=== PATIENT | male | born 1945 | race Caucasian/White ===

== ENCOUNTER → 2016-11-01 | Outpatient (CLI) | payer MEDICARE, BC ==
[~2016-11-01] MED LIST: ANDROGEL1.62% TP; ASPIRIN E.C. 8181 MG PO; BENICAR 20MG TA20 MG PO; CENTRUM SILVER1 TA1 PO; CHROMIUM PICO200 MCG PO; CHROMIUM PICO500 MC1 PO; DESYREL 100MG100 MG PO; EXFORGE 5 MG-321 TAB PO; EXFORGE 5/320; FISH OIL CONC1000 MG PO; LIPITOR20 MG PO; MELATONIN PO; NASONEX SPRAY NS; NORVASC2.5 MG PO; PAXIL 20MG20 MG PO; SINGULAIR10 MG PO; VITAMIN C500 MG PO; VITAMIN D31000 IU PO; WELLBUTRIN SR150 M1 PO; XALATAN EYE DROPS OU; ZYRTEC 10MG PO
== END ==
LOC: BHSO 13:14
DX: F41.1 Generalized anxiety disorder (principal)

== ENCOUNTER → 2017-01-12 | Outpatient (CLI) | payer MEDICARE, BC | LOC: BHSO 14:59 | DX: F41.1 Generalized anxiety disorder (principal) ==

== ENCOUNTER → 2017-02-08 | Outpatient (CLI) | payer MEDICARE, BC | LOC: MHCPAIN 11:20 | DX: G89.29 Other chronic pain (principal); M54.16 Radiculopathy, lumbar region; M53.3 Sacrococcygeal disorders, not elsewhere classified | CPT/HCPCS: G0463 ==

== ENCOUNTER → 2017-03-27 | Outpatient (CLI) | payer MEDICARE, BC | LOC: COL.RAD 12:19 | DX: M25.561 Pain in right knee (principal) ==

== ENCOUNTER → 2017-04-10 | Outpatient (CLI) | payer MEDICARE, BC | LOC: MHCPAIN 12:37 | DX: G89.29 Other chronic pain (principal); M47.817 Spondylosis without myelopathy or radiculopathy, lumbosacral region; M53.3 Sacrococcygeal disorders, not elsewhere classified | CPT/HCPCS: G0463 ==

== ENCOUNTER → 2017-07-12 | Outpatient (CLI) | payer MEDICARE, BC | LOC: BHSO 14:46 | DX: F41.1 Generalized anxiety disorder (principal) ==

== ENCOUNTER → 2017-09-08 | Outpatient (CLI) | payer MEDICARE, BC | LOC: MHCPAIN 10:31 | DX: G89.29 Other chronic pain (principal); M47.27 Other spondylosis with radiculopathy, lumbosacral region; M48.061 Spinal stenosis, lumbar region without neurogenic claudication | CPT/HCPCS: G0463 ==

== ENCOUNTER → 2017-10-12 | Outpatient (CLI) | payer MEDICARE, BC | LOC: MHCPAIN 10:31 | DX: G89.29 Other chronic pain (principal); M47.27 Other spondylosis with radiculopathy, lumbosacral region; M48.061 Spinal stenosis, lumbar region without neurogenic claudication; M99.53 Intervertebral disc stenosis of neural canal of lumbar region | CPT/HCPCS: G0463; J1100; J2250; J3010; Q9967 ==

== ENCOUNTER → 2017-10-17 | Outpatient (CLI) | payer MEDICARE, BC | LOC: BHSO 12:40 | DX: F41.1 Generalized anxiety disorder (principal) | CPT/HCPCS: G0463 ==

== ENCOUNTER → 2017-10-24 | Outpatient (CLI) | payer MEDICARE, BC | LOC: MHCPAIN 11:10 | DX: G89.29 Other chronic pain (principal); M47.27 Other spondylosis with radiculopathy, lumbosacral region; M53.3 Sacrococcygeal disorders, not elsewhere classified; M48.061 Spinal stenosis, lumbar region without neurogenic claudication | CPT/HCPCS: G0463 ==

== ENCOUNTER 2017-10-30 08:07 | Emergency (ER) | payer MEDICARE, BC ==
[~2017-10-30] VITALS: Ht 182.9 cm; Wt 100.0 kg
[2017-10-30 08:13] VITALS: TEMP 99
[2017-10-30 09:13] LABS: HEMATOCRIT 47.3 % (42.0-52.0); HEMOGLOBIN 16.9 g/dl (13.5-18.0); MEAN CELL VOLUME 89 fl (80.0-100.0); MEAN CORPUSCULAR HEMOGLOBIN 32 pg (27.0-31.0); MEAN CORPUSCULAR HGB CONC 36 g/dl (33.0-37.0); MEAN PLATELET VOLUME 10.5 fl (7.4-10.4); PLATELET COUNT 185 K/mm3 (130-400); RED BLOOD COUNT 5.32 M/mm3 (4.20-5.60); REDCELL DISTRIBUTION WIDTH-CV 13.1 % (11.5-14.5)
[2017-10-30 09:14] LABS: COLLECTION METHOD CLEAN CATCH
[2017-10-30 09:22] LABS: ALBUMIN 4.7 gm/dL (3.5-5.0); BILIRUBIN,TOTAL 0.8 mg/dL (0.0-1.0); C-REACTIVE PROTEIN 1.1 mg/dL (0.0-0.9); CALCIUM 9.4 mg/dL (8.4-10.2); CREATININE, serum 0.98 mg/dL (0.66-1.25); POTASSIUM 3.6 mmol/L (3.4-5.0); TOTAL PROTEIN 7.5 gm/dL (6.4-8.2)
[2017-10-30 09:52] LABS: MUCOUS Present /lpf; PH 6 (5-8); SQUAMOUS EPITHELIAL 0-2 /hpf; URINE APPEARANCE Clear; URINE BACTERIA None Seen /hpf; URINE BILIRUBIN Negative (NEGATIVE); URINE BLOOD Negative (NEGATIVE); URINE COLOR Amber; URINE GLUCOSE Negative (NEGATIVE); URINE KETONE Negative (NEGATIVE); URINE LEUKOCYTE ESTERASE Negative (NEGATIVE); URINE NITRATE Negative (NEGATIVE); URINE PROTEIN(semi-quant) 1+ (NEGATIVE)
[2017-10-30 10:04] LABS: BAND 36 % (0-10); LYMPHOCYTE 4 % (20.0-51.0); NEUTROPHILS 60 % (42.0-75.2); PLATELET ESTIMATE NORMAL (NORMAL)
[2017-10-30] MEDS ORDERED: NAMZARIC1 ECC PO ×2 (11:25→14:15)
[2017-10-30 11:33] VITALS: BP 116/80; PULSE 77
[2017-10-30] MEDS ORDERED: NORVASC 5MG5 MG/TAB PO (14:13)
[2017-10-30] MEDS ORDERED: ANDROGEL1.62% TOP (14:14)
[2017-10-30] MEDS ORDERED: PROSCAR 5MG5 MG PO (14:14)
[2017-10-30] MEDS ORDERED: LIPITOR 10MG10 MG PO (14:15)
[2017-10-30] MEDS ORDERED: PROTONIX 40MG T40 MG PO (14:17)
[2017-10-30] MEDS ORDERED: HCTZ12.5TAB PO (14:18)
[2017-10-30] MEDS ORDERED: LEXAPRO20 MG PO (14:18)
[2017-10-30] MEDS ORDERED: LAMICTAL 25MG T25 MG PO (14:19)
[2017-10-30] MEDS ORDERED: DIOVAN320 MG PO (14:19)
[2017-10-30] MEDS ORDERED: VITAMIN D 1001000 IU PO (14:20)
[2017-10-30] MEDS ORDERED: VITAMINC1000TA PO (14:21)
[2017-10-30] MEDS ORDERED: MULTIPLE VITAMI1 TA5 PO (14:22)
[2017-10-30] MEDS ORDERED: ALEVE 220MG220 MG PO (14:22)
[2017-10-30] MEDS ORDERED: FISH OIL 1000MG1 CAP PO (14:22)
[2017-10-30] MEDS ORDERED: NATURAL POTASS595 MG PO (14:23)
[2017-10-30] MEDS ORDERED: CHROMIUM PICO200 MC2 PO (14:24)
[2017-10-30] MEDS ORDERED: DESYREL 100MG100 MG PO (14:25)
[2017-10-30] MEDS ORDERED: B-12 100 MCG PO (14:27)
[2017-10-30] MEDS ORDERED: XALATAN EYE DROPS OU (14:29)
== END 2017-10-30 11:35 | disposition home or self-care (01) ==
LOC: COL.ER 08:07
PROVIDERS: Family Medicine
DX: K52.9 Noninfective gastroenteritis and colitis, unspecified (principal); Z79.82 Long term (current) use of aspirin; Z79.52 Long term (current) use of systemic steroids
CPT/HCPCS: C9113; J2405; J7030

== ENCOUNTER 2017-10-30 13:41 | Day surgery (SDC) | payer MEDICARE, BC ==
[~2017-10-30] VITALS: Ht 182.9 cm; Wt 100.0 kg
[~2017-10-30 13:41] MED LIST changes: +NAMZARIC1 ECC PO
[2017-10-30] MEDS ORDERED: NORVASC 5MG5 MG/TAB PO (14:13)
[2017-10-30] MEDS ORDERED: ANDROGEL1.62% TOP (14:14)
[2017-10-30] MEDS ORDERED: PROSCAR 5MG5 MG PO (14:14)
[2017-10-30] MEDS ORDERED: LIPITOR 10MG10 MG PO (14:15)
[2017-10-30] MEDS ORDERED: NAMZARIC1 ECC PO (14:15)
[2017-10-30] MEDS ORDERED: PROTONIX 40MG T40 MG PO (14:17)
[2017-10-30] MEDS ORDERED: LEXAPRO20 MG PO (14:18)
[2017-10-30] MEDS ORDERED: HCTZ12.5TAB PO (14:18)
[2017-10-30] MEDS ORDERED: LAMICTAL 25MG T25 MG PO (14:19)
[2017-10-30] MEDS ORDERED: DIOVAN320 MG PO (14:19)
[2017-10-30] MEDS ORDERED: VITAMIN D 1001000 IU PO (14:20)
[2017-10-30] MEDS ORDERED: VITAMINC1000TA PO (14:21)
[2017-10-30] MEDS ORDERED: ALEVE 220MG220 MG PO (14:22)
[2017-10-30] MEDS ORDERED: MULTIPLE VITAMI1 TA5 PO (14:22)
[2017-10-30] MEDS ORDERED: FISH OIL 1000MG1 CAP PO (14:22)
[2017-10-30] MEDS ORDERED: NATURAL POTASS595 MG PO (14:23)
[2017-10-30] MEDS ORDERED: CHROMIUM PICO200 MC2 PO (14:24)
[2017-10-30] MEDS ORDERED: DESYREL 100MG100 MG PO (14:25)
[2017-10-30] MEDS ORDERED: B-12 100 MCG PO (14:27)
[2017-10-30] MEDS ORDERED: XALATAN EYE DROPS OU (14:29)
[2017-10-30 14:39] VITALS: BP 118/89; PULSE 101; TEMP 98.6
[2017-10-30 15:45] VITALS: BP 104/62; PULSE 98; TEMP 99.7
[2017-10-30 16:00] VITALS: BP 102/53; PULSE 92
[2017-10-30 16:15] VITALS: BP 113/61; PULSE 90
[2017-10-30 16:28] VITALS: PULSE 98
[2017-10-30 16:40] VITALS: BP 154/94
== END 2017-10-30 16:41 | disposition home or self-care (01) ==
LOC: SDCO 13:41
DX: K22.6 Gastro-esophageal laceration-hemorrhage syndrome (principal); R11.2 Nausea with vomiting, unspecified; R19.7 Diarrhea, unspecified; K29.80 Duodenitis without bleeding; R00.0 Tachycardia, unspecified; I10 Essential (primary) hypertension; I45.10 Unspecified right bundle-branch block; E78.00 Pure hypercholesterolemia, unspecified; E86.0 Dehydration
CPT/HCPCS: OP; J2250; J2405; J3010; J7030

== ENCOUNTER → 2018-03-02 | Outpatient (CLI) | payer MEDICARE, BC ==
[~2018-03-02] MED LIST changes: +ALEVE 220MG220 MG PO; +ANDROGEL1.62% TOP; +B-12 100 MCG PO; +CHROMIUM PICO200 MC2 PO; +DIOVAN320 MG PO; +FISH OIL 1000MG1 CAP PO; +HCTZ12.5TAB PO; +LAMICTAL 25MG T25 MG PO; +LEXAPRO20 MG PO; +LIPITOR 10MG10 MG PO; +MULTIPLE VITAMI1 TA5 PO; +NATURAL POTASS595 MG PO; +NORVASC 5MG5 MG/TAB PO; +PROSCAR 5MG5 MG PO; +PROTONIX 40MG T40 MG PO; +VITAMIN D 1001000 IU PO; +VITAMINC1000TA PO
== END ==
LOC: BHSO 09:57
DX: F33.41 Major depressive disorder, recurrent, in partial remission (principal)
CPT/HCPCS: G0463

== ENCOUNTER → 2018-06-06 | Outpatient (CLI) | payer MEDICARE, BC | LOC: BHSO 12:56 | DX: F41.1 Generalized anxiety disorder (principal) | CPT/HCPCS: G0463 ==

== ENCOUNTER → 2018-06-07 | Outpatient (CLI) | payer MEDICARE, BC | LOC: COL.VAS 09:35 | DX: I34.0 Nonrheumatic mitral (valve) insufficiency (principal); I51.7 Cardiomegaly ==

== ENCOUNTER → 2018-06-26 | Outpatient (CLI) | payer MEDICARE, BC | LOC: COL.PUL 12:42 | DX: R06.02 Shortness of breath (principal) | CPT/HCPCS: J7674 ==

== ENCOUNTER → 2018-10-17 | Outpatient (CLI) | payer MEDICARE, BC | LOC: MHCPAIN 14:07 | DX: G89.29 Other chronic pain (principal); M47.817 Spondylosis without myelopathy or radiculopathy, lumbosacral region; M54.16 Radiculopathy, lumbar region; M53.3 Sacrococcygeal disorders, not elsewhere classified | CPT/HCPCS: G0463 ==

== ENCOUNTER → 2018-10-18 | Outpatient (CLI) | payer MEDICARE, BC | LOC: MHCPAIN 13:04 | DX: M47.817 Spondylosis without myelopathy or radiculopathy, lumbosacral region (principal); M54.16 Radiculopathy, lumbar region ==

== ENCOUNTER → 2018-10-30 | Outpatient (CLI) | payer MEDICARE, BC | LOC: MHCPAIN 12:17 | DX: G89.29 Other chronic pain (principal); M47.817 Spondylosis without myelopathy or radiculopathy, lumbosacral region; M54.16 Radiculopathy, lumbar region; M53.3 Sacrococcygeal disorders, not elsewhere classified; M48.061 Spinal stenosis, lumbar region without neurogenic claudication | CPT/HCPCS: G0463 ==

== ENCOUNTER → 2018-11-01 | Outpatient (CLI) | payer MEDICARE, BC | LOC: MHCPAIN 12:53 | DX: M47.817 Spondylosis without myelopathy or radiculopathy, lumbosacral region (principal); M54.16 Radiculopathy, lumbar region ==

== ENCOUNTER → 2018-11-12 | Outpatient (CLI) | payer MEDICARE, BC | LOC: MHCPAIN 10:05 | DX: G89.29 Other chronic pain (principal); M47.817 Spondylosis without myelopathy or radiculopathy, lumbosacral region; M54.16 Radiculopathy, lumbar region; M53.3 Sacrococcygeal disorders, not elsewhere classified; M48.061 Spinal stenosis, lumbar region without neurogenic claudication | CPT/HCPCS: G0463 ==

== ENCOUNTER → 2018-12-05 | Outpatient (CLI) | payer MEDICARE, BC | LOC: BHSO 12:49 | DX: F33.41 Major depressive disorder, recurrent, in partial remission (principal) | CPT/HCPCS: G0463 ==

== ENCOUNTER → 2019-02-01 | Outpatient (CLI) | payer MEDICARE, BC | LOC: BHSO 13:15 | DX: F33.42 Major depressive disorder, recurrent, in full remission (principal) | CPT/HCPCS: G0463 ==

== ENCOUNTER 2019-05-12 11:21 | Emergency (ER) | payer MEDICARE, BC ==
[~2019-05-12] VITALS: Ht 182.9 cm; Wt 95.5 kg
[2019-05-12 11:30] VITALS: TEMP 99
[2019-05-12 12:16] LABS: BASO # 0.1 (0.0-0.2); BASO % 0.3 % (0.0-2.0); GRAN % 83.9 % (42.2-75.2); HEMATOCRIT 48.5 % (42.0-52.0); HEMOGLOBIN 16.4 g/dl (13.5-18.0); LYMPH # 0.8 (1.2-3.4); LYMPH % 5.9 % (20.0-51.0); MEAN CELL VOLUME 89 fl (80.0-100.0); MEAN CORPUSCULAR HEMOGLOBIN 30 pg (27.0-31.0); MEAN CORPUSCULAR HGB CONC 34 g/dl (33.0-37.0); MEAN PLATELET VOLUME 10.4 fl (7.4-10.4); MONO # 1.3 (0.1-0.6); MONO % 9.1 % (1.7-9.3); PLATELET COUNT 251 K/mm3 (130-400); RED BLOOD COUNT 5.44 M/mm3 (4.20-5.60); REDCELL DISTRIBUTION WIDTH-CV 13.4 % (11.5-14.5)
[2019-05-12 12:22] LABS: INR 1.4 (0.8-3.0); PROTHROMBIN TIME 16.4 SECONDS (9.7-12.8)
[2019-05-12] MEDS ORDERED: BUSPAR5 MG PO (12:25)
[2019-05-12] MEDS ORDERED: FLEXERIL 1010 MG/TAB PO (12:25)
[2019-05-12] MEDS ORDERED: NEXIUM 40MG40 MG PO (12:26)
[2019-05-12 12:37] LABS: ALBUMIN 4.2 gm/dL (3.5-5.0); BILIRUBIN,TOTAL 0.9 mg/dL (0.0-1.0); CALCIUM 9.6 mg/dL (8.4-10.2); CREATININE, serum 1.15 (0.66-1.25); POTASSIUM 3.5 mmol/L (3.4-5.0); TOTAL PROTEIN 7.9 gm/dL (6.4-8.2)
[2019-05-12 12:48] LABS: TROPONIN-I 0.02 ng/mL (0.000-0.035)
[2019-05-12 16:25] VITALS: BP 150/83; PULSE 85
== END 2019-05-12 17:25 | disposition short-term general hospital (02) ==
LOC: COL.ER 11:21
PROVIDERS: Family Medicine
DX: I26.99 Other pulmonary embolism without acute cor pulmonale (principal); K21.9 Gastro-esophageal reflux disease without esophagitis; I10 Essential (primary) hypertension
CPT/HCPCS: C9113; J1644; Q9967

== ENCOUNTER → 2019-07-23 | Outpatient (CLI) | payer MEDICARE, BC ==
[~2019-07-23] MED LIST changes: +BUSPAR5 MG PO; +FLEXERIL 1010 MG/TAB PO; +NEXIUM 40MG40 MG PO
== END ==
LOC: COL.VAS 09:19
DX: I34.0 Nonrheumatic mitral (valve) insufficiency (principal); I51.7 Cardiomegaly

== ENCOUNTER → 2019-08-02 | Outpatient (CLI) | payer MEDICARE, BC | LOC: BHSO 13:00 | DX: F41.1 Generalized anxiety disorder (principal) | CPT/HCPCS: G0463 ==

== ENCOUNTER → 2019-08-15 | Outpatient (CLI) | payer MEDICARE, BC | LOC: COL.VAS 10:48 | DX: J45.30 Mild persistent asthma, uncomplicated (principal); I51.7 Cardiomegaly; I34.0 Nonrheumatic mitral (valve) insufficiency ==

== ENCOUNTER → 2019-10-18 | Outpatient (CLI) | payer MEDICARE, BC ==
[2019-10-18 12:43] LABS: CREATININE, serum 0.95 (0.66-1.25)
== END ==
LOC: COL.RAD 12:09
PROVIDERS: Physician Assistant
DX: I26.99 Other pulmonary embolism without acute cor pulmonale (principal); I51.7 Cardiomegaly; R91.1 Solitary pulmonary nodule
CPT/HCPCS: Q9967

== ENCOUNTER → 2019-11-15 | Outpatient (CLI) | payer MEDICARE, BC | LOC: BHSO 14:11 | DX: F41.1 Generalized anxiety disorder (principal) | CPT/HCPCS: G0463 ==

== ENCOUNTER → 2020-03-03 | Outpatient (CLI) | payer MEDICARE, BC ==
--- NOTE | 2020-02-27 12:52 | NUR ---
PT'S WANTED TO CALL BACK THEY WERE OUT OF TOWN. GAVE CALL BACK NUMBER.
[~2020-03-03] VITALS: Ht 182.9 cm; Wt 99.9 kg
[2020-03-03] VITALS (12 sets, daily range): BP systolic 112–146; BP diastolic 61–90; PULSE 54–61
[~2020-03-03] MED LIST changes: +ANTI-DIARRHEAL2 MG PO; +B-12 500 MCG PO; +B-121000 MCG PO; -CHROMIUM PICO200 MC2 PO; +CHROMIUM PICOLI1 TA8 PO; +DIPROLENE CR15GM TP; +ELIQUIS 5MG PO; +FLOVENT 110MCG7.9 GM IH; +MELATONIN3 M1 PO; +MICARDIS80 MG PO; +MYLANTA MAXIMU355 M1 PO; +NASACORT OTC NS; +NASONEX SPRAY17 GM NS; +OPCON-A 0.027%-15 M1 OP; +PROAIR HFA0.09 MG/AC IH; +SALINE 45 ML45 ML NS; +TUMS DUAL ACTIO1 CTB PO; +ZYRTEC 10MG10 MG PO
--- NOTE | 2020-03-03 10:49 | NUR ---
PT AMBULATED TO CT AND POSITIONED. IMAGES TAKEN AND MONITORING EQUIPMENT PLACED.
--- NOTE | 2020-03-03 13:50 | NUR ---
PT WAS TAKEN TO LOBBY IN WHEELCHAIR ACCOMPANIED BY HIS . WENT OVER AND GIVEN COPY OF DC INSTRUCTIONS. SITE WAS CDI DURING THE WHOLE TIME. PT DID COUGH UP A SLIGHT AMT OF BLOOD AFTER THE PROCEDURE. INT DC'D INTACT AND PRESSURE DRESSING APPLIED.
== END ==
LOC: COL.RAD 09:30
DX: G47.33 Obstructive sleep apnea (adult) (pediatric) (principal); R93.89 Abnormal findings on diagnostic imaging of other specified body structures; R91.8 Other nonspecific abnormal finding of lung field; I26.99 Other pulmonary embolism without acute cor pulmonale

== ENCOUNTER 2020-07-29 12:45 | Outpatient (RCR) | payer MEDICARE, BC | END 2020-08-12 12:38 | disposition home or self-care (01) | LOC: MKS.ESL.PT 12:45 | DX: R53.83 Other fatigue (principal); Y84.2 Radiological procedure and radiotherapy as the cause of abnormal reaction of the patient, or of later complication, without mention of misadventure at the time of the procedure ==